=== PATIENT | male | born 1960 | race African-American/Black ===

== ENCOUNTER 2022-08-09 12:44 | Emergency (ER) | payer BC, MEDICAID ==
[~2022-08-09] VITALS: Ht 172.7 cm; Wt 73.0 kg
[2022-08-09] MEDS ORDERED: SODIUM CHLORIDE 0.9% 1,000 ML IV ONE (13:30)
[2022-08-09] MEDS ORDERED: HYDRALAZINE 20MG/ML VIAL IV ONE (13:30)
[2022-08-09 14:34] LABS: BASOPHILS % 0.5 % (0.0-2.0); HEMATOCRIT. 42.8 % (42.0-52.0); HEMOGLOBIN. 14.7 g/dL (14.0-18.0); MEAN CORPUSCULAR HEMOGLOBIN 30.5 pg (28.0-32.0); MEAN CORPUSCULAR VOLUME 88.8 fL (80.0-94.0); MEAN PLATELET VOLUME 8.7 fl (7.4-10.4); MONOCYTES % 13.6 % (2.0-8.0); NEUTROPHILS % 65.9 % (40.0-76.0); PLATELET 280 x1000/uL (130-400); RED BLOOD CELL COUNT 4.82 mill/uL (4.7-6.1); RED CELL DISTRIBUTION WIDTH 13.8 % (11.6-14.6)
[2022-08-09 14:46] LABS: CHLORIDE 104 mEq/L (98-107)
[2022-08-09 14:55] LABS: ETHANOL BLOOD < 10 mg/dL
[2022-08-09 14:59] LABS: *AMPHETAMINES SCREEN URINE PRESUMTIVE POSITIVE (NEGATIVE); *BARBITURATES SCREEN URINE NEGATIVE (NEGATIVE); *BENZODIAZEPINES SCREEN URINE NEGATIVE (NEGATIVE); *COCAINE SCREEN URINE PRESUMTIVE POSITIVE (NEGATIVE); CANNABINOID URINE SCREEN NEGATIVE (NEGATIVE); METHADONE URINE SCREEN NEGATIVE (NEGATIVE); OPIATES URINE SCREEN NEGATIVE (NEGATIVE); PHENCYCLIDINE URINE SCREEN NEGATIVE (NEGATIVE)
[2022-08-09 16:00] VITALS: BP 148/109
[2022-08-09 16:04] LABS: PARTIAL THROMBOPLASTIN TIME 30.3 sec (23.4-31.0); PROTHROMBIN TIME 10.4 sec (9.6-11.0)
[2022-08-09] MEDS ORDERED: POTASSIUM CHLORIDE 20MEQ TABLET SR PO ONE (16:15)
== END 2022-08-09 17:23 | disposition left against medical advice (07) ==
LOC: ER 12:44 → CANBEDREQ 08-11 16:09
DX: R41.82 Altered mental status, unspecified (principal); I10 Essential (primary) hypertension; F19.10 Other psychoactive substance abuse, uncomplicated; E87.6 Hypokalemia
CPT/HCPCS: 36415; 70450; 71045; 73110; 73521; 80053; 80305; 80320; 82962; 83690; 83880; 84484; 85025; 85610; 85730; 86850; 86900; 86901; 93005; 96361; 96374; 99285; J0360; J7030; Z7610; G0480